=== PATIENT | female | born 1985 | race Caucasian/White ===

== ENCOUNTER 2019-10-16 08:15 | Inpatient (IN) | payer BC, OTHER ==
[~2019-10-16] VITALS: Ht 165.1 cm; Wt 82.6 kg
[~2019-10-16 08:15] MED LIST: ACID CONTROL20 MG PO; FLUARIX QU60 MCG/0.1 IM; METROGEL-VAGINA70 GM VAG; NOHOMEMEDICATIONS; ONDANSETRON HCL4 M2 PO; PEPCID20 MG PO; PHENERGAN 25 MG25 M1 PO; PROMS25 WY RECTAL; REGLAN 10 MG TA10 MG PO; ZOFRAN ODT4 MG SUBLING
[2019-10-16 08:16] VITALS: BP 132/81
[2019-10-16 08:49] LABS: ABSOLUTE NEUTROPHILS 12.7 thou/uL (1.4-8.2); BASOPHILS 0.2 % (0.0-2.0); EOSINOPHILS 0.1 % (0.0-3.0); HEMATOCRIT 43.6 % (37.0-47.0); HEMOGLOBIN 14.3 gm/dL (12.0-15.0); LYMPHOCYTES 8.7 % (24.0-44.0); MCH 29.4 pg (26.0-34.0); MCHC 32.7 g/dL (28.0-37.0); MCV 89.9 fL (80.0-100.0); MONOCYTES 1.3 % (1.0-8.0); POLYS 89.7 % (36.0-66.0); RBC 4.85 mil/uL (4.20-5.00); RDW 13.7 % (10.5-14.5); WBC 14.2 thou/uL (4.0-11.0)
[2019-10-16 08:52] LABS: CALCIUM 10.6 mg/dL (8.5-10.1); CREATININE 0.8 mg/dL (0.6-1.0); MAGNESIUM 2.1 mg/dL (1.8-2.4); POTASSIUM 4.1 mmol/L (3.5-5.1)
[2019-10-16 10:14] LABS: URINE BILIRUBIN NEGATIVE (Negative); URINE BLOOD NEGATIVE (Negative); URINE CLARITY CLEAR; URINE COLOR YELLOW; URINE GLUCOSE-RANDOM* NEGATIVE (Negative); URINE KETONES 3+ (Negative); URINE LEUKOCYTES-REFLEX NEGATIVE (Negative); URINE NITRITE-REFLEX NEGATIVE (Negative); URINE PROTEIN (DIPSTICK) 2+ (Negative); URINE SPECIFIC GRAVITY >= 1.030 (1.005-1.035); URINE UROBILINOGEN 0.2 E.U./dl (0.2-1.0)
[2019-10-16 10:31] LABS: URINE REDUCING SUBSTANCE NEGATIVE
[2019-10-16 11:10] LABS: CASTS None Seen /LPF (None Seen); CRYSTALS None Seen /LPF (None Seen); SQUAMOUS >10 Many /LPF (0-3)
[2019-10-16 11:11] LABS: BACTERIA-REFLEX 1-9 Few /HPF (None Seen); URINE RBC None Seen /HPF (0-2); URINE WBC-REFLEX 0-5 Rare /HPF (0-5)
[2019-10-16 11:22] LABS: PLATELET COUNT 313 thou/uL (150-400)
[2019-10-16] MEDS ORDERED: VITAMIN B-625 MG PO (12:19)
[2019-10-16 14:17] VITALS: BP 121/76
[2019-10-16 14:30] VITALS: BP 120/78
[2019-10-16 15:00] VITALS: BP 126/67
[2019-10-16 16:20] LABS: CALCIUM 9.3 mg/dL (8.5-10.1); CREATININE 0.7 mg/dL (0.6-1.0); POTASSIUM 3.2 mmol/L (3.5-5.1)
--- NOTE | 2019-10-16 17:20 | NUR ---
Admitted from emergency room due to nausea and vomiting. A+Ox4. On room air. With SL at L AC- intact, started on IVF at 125cc/hr. Offered ice chips. On clear liquids- offered but pt said she cannot tolerate is and asked for ice chips instead. Transferred to room safely. Up ad cuca. With consult to Dr Valente- called back and placed orders, additional IV anti emetics placed, she said she'll see patient tomorrow morning- pt informed. Assisted in ADLs.
[2019-10-16 19:15] VITALS: BP 107/65
--- NOTE | 2019-10-17 01:50 | NUR ---
PT AOX4. PT REPORTS DULL PAIN 4/10 IN ABDOMEN DUE TO EPISODES OF VOMITING AND WRETCHING. PT CONTINUES TO REPORT NAUSEA AND VOMITING. EMESIS NOTED TO BE CLEAR WITH CONSISTENCY OF SPIT. PT REPORTS RELIEF WITH MEDICATIONS, COOL ENVIRONMENT, RELAXATION, AND MEDICATIONS. PT TAKING PRN PO PYRIDOXINE Q6HR AND PRN IV COMPAZINE Q6HR WHEN FIRST MEDICATION INEFFECTIVE. PT AMBULATES INDEPENDENTLY IN ROOM WITH STAND BY ASSIST. PT ONLY TOLERATING ICE CHIPS PO. ENCOURAGED TO NOTIFY STAFF FOR ALL NEEDS. BED IN LOWEST POSITION, CALL LIGHT WITHIN REACH, BED ALARM ON. WILL CONTINUE TO MONITOR.
[2019-10-17 02:20] LABS: HEMATOCRIT 34.2 % (37.0-47.0); MCH 29.9 pg (26.0-34.0); MCHC 33.2 g/dL (28.0-37.0); MCV 89.9 fL (80.0-100.0); RBC 3.8 mil/uL (4.20-5.00); RDW 13.3 % (10.5-14.5); WBC 10.6 thou/uL (4.0-11.0)
[2019-10-17 02:30] LABS: ALBUMIN 3.2 g/dL (3.4-5.0); CALCIUM 8.1 mg/dL (8.5-10.1); CREATININE 0.6 mg/dL (0.6-1.0); TOTAL BILIRUBIN 1.3 mg/dL (<0.1-1.0); TOTAL PROTEIN 6.4 g/dL (6.4-8.2)
[2019-10-17 02:32] LABS: POTASSIUM 2.9 mmol/L (3.5-5.1)
[2019-10-17 02:35] LABS: HEMOGLOBIN 11.4 gm/dL (12.0-15.0)
[2019-10-17 07:15] VITALS: BP 118/59
[2019-10-17 15:45] VITALS: BP 121/78
--- NOTE | 2019-10-17 16:48 | NUR ---
PT RECEIVED MEDICATION ORDERED. NAUSEA AND VOMITING CONTINUES WITH PARTIAL RELIEF STATED BY PATIENT. PATIENT ATTEMPTING TO RESUME CLEAR LIQUID DIET. TOLERATING POORLY. ONLY ABLE TO TOLERATE ICE CHIPS. UP AD LESA TO BATHROOM WITH STEADY GAIT. REQUESTING TO REST THIS SHIFT, STATES SHE HAS NOT BEEN ABLE TO GET MUCH SLEEP DUE TO N/V.
[2019-10-17 19:04] VITALS: BP 129/85
--- NOTE | 2019-10-18 04:25 | NUR ---
ASSUMED CARE AROUND 191. AXOX4. BROWN EMESIS NOTED. CALLED DIRECTOR [employer] AND INSPECTOR FOR AND RECEIVED AN ORDER OCCULT BLOOD IN EMESIS. CAME BACK POSITIVE. REPORTED BACK TO DIRECTOR [employer] AND PT PLACED ON PROTONIX DRIP. CALLED PHARMACY AND VERIFIED OK TO ADMINISHTER PER PROTONIX BEING FDA CATEGORY B. PERSISTENT NAUSEA AND VOMITING. NO OTHER S/S ACUTE DISTRESS NOTED OR REPORTED AT THIS TIME. WILL CONT TO MONITOR FOR ANY CHANGES IN CONDITION.
[2019-10-18 04:54] LABS: ALBUMIN 3.2 g/dL (3.4-5.0); CALCIUM 8.3 mg/dL (8.5-10.1); CREATININE 0.5 mg/dL (0.6-1.0); POTASSIUM 3.3 mmol/L (3.5-5.1); TOTAL BILIRUBIN 1.2 mg/dL (<0.1-1.0); TOTAL PROTEIN 6.3 g/dL (6.4-8.2)
[2019-10-18 05:07] LABS: ABSOLUTE NEUTROPHILS 5.8 thou/uL (1.4-8.2); BASOPHILS 0.3 % (0.0-2.0); HEMATOCRIT 34.5 % (37.0-47.0); HEMOGLOBIN 11.3 gm/dL (12.0-15.0); LYMPHOCYTES 23.7 % (24.0-44.0); MCHC 32.7 g/dL (28.0-37.0); MCV 91.9 fL (80.0-100.0); MONOCYTES 6.9 % (1.0-8.0); PLATELET COUNT 195 thou/uL (150-400); POLYS 69.1 % (36.0-66.0); RBC 3.75 mil/uL (4.20-5.00); RDW 13.7 % (10.5-14.5); WBC 8.4 thou/uL (4.0-11.0)
[2019-10-18 08:40] VITALS: BP 122/86
--- NOTE | 2019-10-18 12:28 | NUR ---
PT A&OX4, VSS, DENIES PAIN. PATIENT VOMITED 20 CC THIS AM APPROX 0800. PATIENT CONTINUES TO HAVE NAUSEA. PATIENT VOMITED AFTER DRINKING WARM TEA AT 0800. SINCE WARM TEA PATIENT HASNT HAD ANYTHING TO EAT OR DRINK. NO SIGNS OF DISTRESS. PATIENT RESTING IN BED. ANTIEMETIC MEDICATION GIVEN. WILL CONTINUE TO MONITOR.
[2019-10-18 20:18] VITALS: BP 122/69
--- NOTE | 2019-10-19 07:24 | NUR ---
PT IS A&OX4. PT DID NOT HAVE IV ACCESS AT THE BEGINING OF THE SHIFT. I PLACED A LEFT FOREARM IV 22 GAUGE AT 2350. I STARTED THE PT'S FLUIDS BACK UP. PT IS CONCERNED ABOUT THE N/V COMING BACK. PT HAS COMPLAINTS OF NAUSEA/ VOMITING. PT RECEIVED ZOFRAN SUBQ AND IV COMPAZINE. PT ALSO TOOK SCHEDULED MEDICATION. PT RESTED IN THE ROOM. PT HAS NO COMPLAINTS OF PAIN.
[2019-10-19 08:00] VITALS: BP 118/71
--- NOTE | 2019-10-19 08:00 | NUR ---
I HAVE REVIEWED THE DOCUMENTATION BY Helen ABERNATHY LPN FROM 1845 TO 45 AND I CONCUR WITH IT.
[2019-10-19] MEDS ORDERED: PROCHLORPERAZINE5 M2 PO (13:25)
[2019-10-19] MEDS ORDERED: ZOFRAN 4 MG ORAL4 MG DISSOLVE (13:25)
[2019-10-19] MEDS ORDERED: PYRIDOXINE HCL50 MG PO (13:25)
[2019-10-19 14:13] VITALS: BP 118/71
--- NOTE | 2019-10-19 14:25 | NUR ---
PT A&OX4, VSS, DENIES PAIN. PT CONTINUE TO HAVE NAUSEA BUT NO VOMITING SINCE 0600 TODAY. PATIENT CONTINUES ON CLEAR LIQUIDS AND TOLERATING. WILL CONTINUE TO MONITOR.
== END 2019-10-19 15:20 | disposition home or self-care (01) | DRG 833 ==
LOC: ER 08:15 → 4W 14:02 → EROBS 14:02 → 4W 14:58
PROVIDERS: Emergency Medicine; Nurse Practitioner; Obstetrics & Gynecology; ADMIT Hospitalist
DX: O21.0 Mild hyperemesis gravidarum (principal); E86.0 Dehydration; E88.89 Other specified metabolic disorders; Z3A.08 8 weeks gestation of pregnancy
CPT/HCPCS: 10040